=== PATIENT | male | born 1945 | race Caucasian/White ===

== ENCOUNTER 2018-10-29 06:39 | Inpatient (IN) ==
[2018-10-29] MEDS ORDERED: *HR* FentaNYL (PF) 100 MCG/2 ML VIAL ONE ×2 (06:59→09:13)
[2018-10-29] MEDS ORDERED: *HR* Midazolam HCl 2 MG/2 ML VIAL ONE (07:00)
[2018-10-29] MEDS ORDERED: *HR* Propofol 200 MG/20 ML VIAL IVP ONE (07:00)
[2018-10-29] MEDS ORDERED: Lidocaine -MPF 2% 2 ML VIAL ONE ×2 (07:01→07:02)
[2018-10-29] MEDS ORDERED: Ondansetron 4 MG/2 ML VIAL ONE ×2 (07:01→11:25)
[2018-10-29] MEDS ORDERED: Lidocaine HCL 4 ML Topical Solution (Laryng-O-Jet Kit Sterile Pak) TP ONE (07:01)
[2018-10-29] MEDS ORDERED: *HR* Rocuronium Bromide 50 MG/5 ML VIAL ONE ×3 (07:01→10:26)
[2018-10-29] MEDS ORDERED: CeFAZolin Syr 2,000MG/20 ML 2,000 MG/20 ML SYRINGE IVPB ONE (07:03)
[2018-10-29] MEDS: Ringers Solution, Lactated 1,000 ML IVC SCH (07:47)
--- NOTE | 2018-10-29 07:47 | Anesthesia Evaluation PreOp ---
Date of Encounter: 10/29/18 Time of Encounter: 07:45 - Past History Planned Operation: left partial nephrectomy robo Cardiac History: HTN, Other (small AAA) Pulmonary History: Denies Any Significant HX CAD MANAGER History: Denies Any Significant HX Other Medical History: Renal (polycystic renal ds, CKD 3) Anesthesia History: No Prior Anesthetic Complications, Past Anesthesia (appy, bilat TKA, finger amp, left RCR) Alcohol Use: none Drug use: none Medications and Allergies Ascorbic Acid [Vitamin C] 500 mg PO DAILY 10/29/18 [History] Aspirin [Lo-Dose Aspirin EC] 81 mg PO DAILY 10/29/18 [History] Ferrous Sulfate [Iron] 325 mg PO DAILY 10/29/18 [History] Lisinopril [Zestril] 10 mg PO BID 10/29/18 [History] Sertraline [Zoloft] 150 mg PO HS 10/29/18 [History] Testosterone Cypionate [Depo-Testosterone] 200 mg IM Q2W 10/29/18 [History] diazePAM [Valium] 1 tab PO BID 10/29/18 [History] Allergy/AdvReac Type Severity Reaction Status Date / Time celecoxib [From Celebrex] AdvReac See Verified 10/29/18 07:28 Comments - Meds/Allergy Pre-op Review Medications Reviewed: Yes Allergies Reviewed: Yes Beta Blockers on Current Med List: No Anesthesia Results - Labs Selected Entries 10/29/18 07:24 Temperature 97.9 F Pulse Rate 53 Respiratory Rate 18 Blood Pressure 136/85 O2 Sat by Pulse Oximetry 94 Laboratory Tests 10/22/18 10/26/18 09:49 07:21 Hgb 17.8 H Hct 53.6 H Sodium 141 Potassium 4.7 BUN 41 H Creatinine 1.65 H - Imaging EKG: report reviewed (SINUS RHYTHM MODERATE VOLTAGE CRITERIA FOR LVH, CONSIDER NORMAL VARIANT INFERIOR MYOCARDIAL INFARCTION, PROBABLY OLD) Additional studies: CTA: IMPRESSION: 1. Extensive diffuse atherosclerotic plaque is present in the infrarenal aorta. At the site of abnormality seen on recent MRI, ulcerated atherosclerotic plaque is present. However, there is no evidence of a penetrating aortic ulcer or dissection. 2. 10 mm average dimension noncalcified nodule in the left upper lobe. Follow-up per guidelines below. 3. Suspicious 3.6 cm lesion in the left inferior renal pole, better evaluated on recent MRI. 4. High-grade stenosis in the proximal right renal artery. Anesthesia Exam Selected Entries 10/29/18 07:24 Temperature 97.9 F Pulse Rate 53 Respiratory Rate 18 Blood Pressure 136/85 O2 Sat by Pulse Oximetry 94 Weight: 92 NPO (# of Hours): 8 - HEENT Pupil (Motor): EOMI Mallampati: III Teeth: Normal - CAD MANAGER LOC: Oriented CAD MANAGER Motor: Normal RUE, Normal LUE, Normal RLE, Normal LLE, Normal Face CAD MANAGER Sensory: Normal: RUE, LUE, RLE, LLE, Face - Cardiac Rhythm: Regular Murmur: None - Pulmonary Respiratory Effort: Symmetrical Anesthesia Assess/Plan ASA Score: 3 Level of consciousness: Cooperative, Oriented Anesthetic Plan: General Monitoring Plan: Standard Monitors, A-Line Recovery Plan: PACU (agrees to GA, a-line and blood if needed)
[2018-10-29] MEDS ORDERED: *HR* OxyCODONE Immed Rel 5 MG TABLET PO PRN (07:51)
[2018-10-29] MEDS ORDERED: *HR* HYDROmorphone (PF) 1 MG/ML SYRINGE IVP PRN (07:51)
[2018-10-29] MEDS ORDERED: *HR* Promethazine 25 MG/ML VIAL IVP PRN (07:51)
[2018-10-29] MEDS ORDERED: Acetaminophen IV 1,000 MG/100 ML INFUS..BTL ONE (07:53)
[2018-10-29] MEDS ORDERED: Ringers Solution, Lactated 1,000 ML IVC SCH (08:00)
--- NOTE | 2018-10-29 08:07 | History & Physical Report ---
Date of Encounter: 10/29/18 Time of Encounter: 08:07 24 Hour HP Update - Instructions Instructions: If the History and Physical is less than 30 days old and was completed prior to A.M. admission and or procedure and has NOT been updated on calendar day of procedure please complete this update prior to performing procedure. - Update Patient reports changes in Medical Condition: No Changes in examination, assessment, or condition: No Changes in Medication: No Preop tests/diagnostics Reviewed: Yes Surgery Remains Indicated: Yes Consent for Planned Operative Procedure(s) Verified: Yes - Pre-Operative Checklist Preoperative Checklist Indicated: Yes Prophylactic Antibiotic Ordered: Yes Home Medications Include Beta Rafi: No Beta Rafi Taken Today (Day of Surgery): No Beta Rafi Taken Yesterday (Day Prior to Surgery): No Is VTE Prophylaxis Indicated?: Yes
[2018-10-29] MEDS ORDERED: EPHEDrine 50 MG/ML VIAL ONE ×2 (08:39→09:55)
[2018-10-29] MEDS ORDERED: Dexamethasone 4 MG/ML VIAL ONE (09:05)
[2018-10-29] MEDS ORDERED: *HR* Metoprolol 5 MG/5 ML VIAL IVP ONE (09:25)
[2018-10-29] MEDS ORDERED: *HR* Labetalol 20 MG/4 ML SYRINGE IVP ONE (09:26)
--- NOTE | 2018-10-29 09:38 | Anesthesia Procedures ---
Date of Encounter: 10/29/18 Time of Encounter: 08:20 Procedures: Anesthesia - Arterial Line Consent obtained: written consent Time out performed: Yes Amount of Anesthetic used (mls): 0 Size (Gauge): 20 Length (inches): 1 3/4 Technique Used: sterile prep, direct puncture technique (Ultrasound guided insertion on first attempt) Post-Procedure: line taped into place Patient tolerated procedure: well, no complications Complications: none Site: Radial L Vitals: See Anesthesia Record Comments: Left radial arterial line placement performed utilizing the ultrasound on first attempt without complications.
[2018-10-29] MEDS ORDERED: *HR* PHENYLEPHRINE 1,000 MCG/10 ML SYRINGE IVP ONE (09:51)
[2018-10-29] MEDS ORDERED: Heparin 1,000 UNITS/500 mL 500 ML ONE (09:52)
[2018-10-29] MEDS ORDERED: Mannitol 20% 100 GM/500 ML IV.SOLN IVC ONE (09:59)
--- NOTE | 2018-10-29 11:40 | Operative Note ---
Date of procedure: 10/29/18 Pre-op diagnosis: Left renal mass Post-op diagnosis: same Procedure: Minimally invasive left partial nephrectomy with robotic assistance, intraoperative ultrasound with interpretation in real time by surgeon to facilitate procedure Implants: 19-Zambian Martell drain in inferior most left lower abdominal incision Complications: None Anesthesia: GETA Surgeon: Charles Ellis Was there an medical office assistant instructor present: Yes Tumbler Plater: Kenya Mack (No qualified resident was available to scrub the case. EDMOND Sams was involved in all aspects case from incision through closing.) Estimated blood loss (cc): 100 Specimen: Left partial nephrectomy/left renal mass Condition: stable Disposition: PACU Procedure in Detail: The patient brought to the operating theater and placed on table supine position. Is identified by name date of and administered a general anesthetic. Preoperative images were reviewed and the patient was placed in right lateral decubitus position with the left side up. The patient was prepped and draped in normal sterile fashion. Standard 5 port transperitoneal laparoscopic robotic assistance configuration was used. Pneumoperitoneum was established with a Veress needle. The camera port was placed blindly. All other ports were placed under direct vision. There were no injuries report placement. Using pure lapse Technique: Was mobilized medially the kidney was mobilized and the renal vasculature identified and skeletonized. The robot was then brought in and docked. The kidney was defatted. The tumor was identified in the lower pole posterior medial aspect of the kidney. This was a difficult location required dissection into the hilum. Intraoperative lapse Ultrasound was used to identify the margins of the tumor. This approximated the hilum but not abut the vessels. It did extend into the renal sinus fat. Based upon this intraoperative ultrasound the margins the tumor were marked on the surface of the kidney with Bovie coagulation. 2 renal artery clamps were placed after 12.5 g mannitol were given. One renal vein clamp was placed. The kidney was incised with accommodation of sharp and blunt dissection this was carried down through the renal parenchyma down to renal sinus fat. Grossly are margin appeared negative. The specimens trapped within an Endo Catch bag and sent to pathology for evaluation. Reconstruction of the kidney was performed in 2 layers. The first layer was a running 3-0 V- lock suture at the base of the defect. A second layer was a running 2-0 Vloc suture in a running horizontal mattress fashion interrupted Weck clips along the right side of the defect tensioning. Once the defect was closed the Weck clips on the inferior side of the defect were used to tension. The defect was closed over RRR. The renal vein clamp was released and hyperinflation of lungs showed no significant bruising. Renal artery clamps were released and no significant hemorrhage was identified. The defect was covered with FloSeal. The remainder without there is inspected and found have excellent hemostasis. A 19-Zambian Martell drain was placed in the lower most port site and secured to the skin with a silk ligature. The medical office assistant instructor 12 mm port located just inferior to the umbilicus was closed at the fascial level using an 0 Vicryl suture placed with a Petros-Purcell needle. All other ports were closed at the level skin with running 4-0 Vicryl suture. Mastisol and Steri-Strips were applied. Sterile bandages were applied and this ended the operative procedure.
[2018-10-29] MEDS ORDERED: Naloxone 0.4 MG/ML INJ IVP PRN (11:49)
[2018-10-29] MEDS ORDERED: Ondansetron 4 MG/2 ML VIAL IVP PRN (11:49)
--- NOTE | 2018-10-29 12:34 | Anesthesia Evaluation Post Op ---
Date of Encounter: 10/29/18 Time of Encounter: 12:33 - Vital Signs Vital Signs: Vital Signs Temperature 97.9 F 10/29/18 07:24 Pulse Rate 53 10/29/18 07:24 Respiratory Rate 18 10/29/18 07:24 Blood Pressure 136/85 10/29/18 07:24 O2 Sat by Pulse Oximetry 94 10/29/18 07:24 Temperature 96.8 F L 10/29/18 12:11 Pulse Rate 62 10/29/18 12:11 Respiratory Rate 15 10/29/18 12:11 Blood Pressure 134/78 10/29/18 12:11 O2 Sat by Pulse Oximetry 94 10/29/18 12:11 - Lungs Lungs: Clear Ascult./Percussion - Airway Airway: Non-obstructed - Cardiovascular Baseline Rhythm - Mental Status Mental Status: Alert & Oriented, Answers Appropriately - Pain Pain Scale: 2 Pain Scale used: Numeric (1 - 10) - Nausea Vomiting Nausea Vomiting: Not Present - Hydration Hydration: Ice chips - Discharge PostOp Status: Transfer Patient to floor
--- NOTE | 2018-10-29 14:34 | Event Note ---
Date of Encounter: 10/29/18 Time of Encounter: 13:45 POD #0. Patient seen and examined sitting upright in bed in no apparent distress. Vital signs are stable. Patient reports pain is well-controlled, and he denies any chest pain or dyspnea. Patient is tolerating clear liquids without nausea or vomiting. His Lee catheter is indwelling and draining transparent, clear yellow urine into bedside bag. Patient doing well in the immediate postoperative period, and I will reevaluate him in the morning.
[2018-10-29] MEDS: Acetaminophen IV 1,000 MG/100 ML INFUS..BTL IVPB SCH ×2 (16:20→20:47)
[2018-10-29] MEDS: 0.9 % Sodium Chloride 1,000 ML IVC SCH ×2 (16:35→22:17)
[2018-10-29] MEDS: *HR* Heparin 5,000 UNIT/ML VIAL SQ SCH (20:38)
[2018-10-30] MEDS: Acetaminophen IV 1,000 MG/100 ML INFUS..BTL IVPB SCH ×3 (01:33→11:28)
[2018-10-30 04:19] LABS: Basophils % 0.1 %; Eosinophils % 0.1 %; Hematocrit 43.4 % (37.5-50.1); Hemoglobin 14.5 g/dL (12.9-16.9); Immature Granulocytes % 0.3 % (0-4); Lymphocytes # 0.8 K/mcL (0.6-4.6); Lymphocytes % 8.8 %; Mean Corpuscular HGB Conc 33.4 g/dL (31.6-35.5); Mean Corpuscular Hemoglobin 30.2 pg (28.0-33.3); Mean Corpuscular Volume 90.4 fL (83.0-100.0); Mean Platelet Volume 9.7 fL (9.4-12.4); Monocytes # 1.3 K/mcL (0.0-1.3); Monocytes % 13.1 %; Neutrophils # 7.4 K/mcL (1.6-8.9); Platelet Count 179 K/mcL (140-400); Red Cell Distribution Width 13.2 % (11.5-14.5); Segmented Neutrophils % 77.6 %; White Blood Count 9.6 K/mcL (4.3-11.1)
[2018-10-30 04:38] LABS: Calcium 8.6 mg/dL (8.6-10.3); Potassium 4.7 mEq/L (3.5-5.1)
[2018-10-30] MEDS: *HR* Heparin 5,000 UNIT/ML VIAL SQ SCH (05:58)
[2018-10-30] MEDS: Ringers Solution, Lactated 1,000 ML IVC SCH (07:32)
[2018-10-30] MEDS ORDERED: Famotidine 20 MG TABLET PO PRN (10:29)
[2018-10-30] MEDS ORDERED: Chloraseptic Spray 177 ML BOTTLE MM PRN (10:30)
--- NOTE | 2018-10-30 11:14 | Discharge Summary ---
<Kenya Mack N - Last Filed: 10/30/18 11:57> Orders not resulted at time of discharge: Pending orders 10/29/18 11:12 Surgical Pathology [PTH] Stat Date of Encounter: 10/30/18 Time of Encounter: 11:45 - Discharge Diagnosis (1) Left renal mass Priority: Primary Status: Acute - Hospital Course Hospital course: Mr. Schmitt is a 73 year old male who presents with a history of a left renal mass. On 10/30/2018, patient was taken to the operating room where he underwent a robotic-assisted left partial nephrectomy. There were no surgical complications, and the patient tolerated the procedure well. Postoperative course was relatively unremarkable, and he was dismissed in satisfactory condition. 19-Czech Martell drain was removed on postoperative day #1 without complication. Postoperative expectations, restrictions, activity and follow-up were discussed with patient, and patient verbalized understanding. Time spent discussing smoking cessation with patient: 3 to 10 minutes - Time Spent with Patient Total time spent providing and/or coordinating discharge services: Less than 30 minutes Procedures and tests throughout hospitalization: Robotic assisted left partial nephrectomy Labs on day of discharge: Labs from last 24 hours 10/30/18 10/30/18 04:06 04:06 WBC 9.6 RBC 4.80 Hgb 14.5 Hct 43.4 MCV 90.4 MCH 30.2 MCHC 33.4 RDW 13.2 Plt Count 179 MPV 9.7 Immature Gran % 0.3 Seg Neutrophils % 77.6 Lymphocytes % 8.8 Monocytes % 13.1 Eosinophils % 0.1 Basophils % 0.1 Neutrophils # 7.4 Lymphocytes # 0.8 Monocytes # 1.3 Eosinophils # 0.0 Basophils # 0.0 Sodium 138 Potassium 4.7 Chloride 107 Carbon Dioxide 24 BUN 33 H Creatinine 1.83 H Est GFR ( Amer) 44 L Est GFR (Non-Af Amer) 36 L BUN/Creatinine Ratio 18 Glucose 137 H Calculated Osmolality 295 Calcium 8.6 - Discharge Medications Prescriptions: New Ciprofloxacin HCl [Cipro] 500 mg PO BID #6 tablet Docusate [Colace] 100 mg PO BID #30 capsule Oxycodone HCl/Acetaminophen [Percocet 5-325 mg Tablet] 1 each PO Q6H PRN 4 Days #15 tablet PRN Reason: Pain Continued Testosterone Cypionate [Depo-Testosterone] 200 mg IM Q2W Sertraline [Zoloft] 100 mg PO HS Lisinopril [Zestril] 10 mg PO BID Ferrous Sulfate [Iron] 325 mg PO DAILY Aspirin [Lo-Dose Aspirin EC] 81 mg PO DAILY diazePAM [Valium] 1 tab PO BID Ascorbic Acid [Vitamin C] 500 mg PO DAILY Home Medications: Ascorbic Acid [Vitamin C] 500 mg PO DAILY 10/29/18 [History] Aspirin [Lo-Dose Aspirin EC] 81 mg PO DAILY 10/29/18 [History] Ferrous Sulfate [Iron] 325 mg PO DAILY 10/29/18 [History] Lisinopril [Zestril] 10 mg PO BID 10/29/18 [History] Sertraline [Zoloft] 100 mg PO HS 10/29/18 [History] Testosterone Cypionate [Depo-Testosterone] 200 mg IM Q2W 10/29/18 [History] diazePAM [Valium] 1 tab PO BID 10/29/18 [History] Ciprofloxacin HCl [Cipro] 500 mg PO BID #6 tablet 10/30/18 [Rx] Docusate [Colace] 100 mg PO BID #30 capsule 10/30/18 [Rx] Oxycodone HCl/Acetaminophen [Percocet 5-325 mg Tablet] 1 each PO Q6H PRN 4 Days #15 tablet 10/30/18 [Rx] Allergies/Adverse Reactions: Allergy/AdvReac Type Severity Reaction Status Date / Time celecoxib [From Celebrex] AdvReac See Verified 10/29/18 07:28 Comments Date of admission: 10/29/18 13:15 Primary care physician: Mariza Ivory CNP Discharging clinician: Kenya Mack Anticipated date of discharge: 10/30/18 Exam Initial Vital Signs Temp Pulse Resp BP Pulse Ox 97.9 F 53 18 136/85 94 10/29/18 07:24 10/29/18 07:24 10/29/18 07:24 10/29/18 07:24 10/29/18 07:24 - General physical appearance Present: no distress, no pain - Eyes Present: PERRL, normal ocular movement - ENT Present: normal nares, normal mucosa - Neck Present: no masses, trachea midline, no lymphadenopathy - Respiratory Present: normal respiratory effort - Cardiovascular Cardiovascular exam IM: RRR - Abdomen Abdomen: Present: soft, non tender, wound (Primary incisions clean, dry, intact). Absent: distended - Genitourinary other (300cc transparent clear yellow urine in bedside urinal) - Integumentary Present: no rash, no abnormal pigmentation - Neurologic Present: normal coordination - Musculoskeletal Present: other (Normal posture) - Patient Status Disposition: Home, Self-Care Condition: Good Functional capacity at discharge: independent ambulation Overall status at discharge: patient is progressing back to baseline - Discharge Instructions Follow Up With: Mariza Ivory CNP [Primary Care Provider] - Charles Ellis [Partnered Physician] - 11/06/18 7:30 am Additional Instructions: Call if fever greater than 101 degrees. Call if incision sites are red, warm, or begin to drain excessively. Okay to shower. No tub baths, swimming, or hot tubs. No lifting greater than 20 pounds or heavy activity. Okay to drive as long as you are no longer taking narcotic pain medicine. - Diet and Activity Activity: increase activity as tolerated Diet: advance to your usual diet <Charles Ellis - Last Filed: 10/30/18 17:09> Orders not resulted at time of discharge: Pending orders 10/29/18 11:12 Surgical Pathology [PTH] Stat Date of Encounter: 10/30/18 - Hospital Course Hospital course: Mr. Schmitt is a 73 year old male - Time Spent with Patient Total time spent providing and/or coordinating discharge services: Labs on day of discharge: Labs from last 24 hours 10/30/18 10/30/18 04:06 04:06 WBC 9.6 RBC 4.80 Hgb 14.5 Hct 43.4 MCV 90.4 MCH 30.2 MCHC 33.4 RDW 13.2 Plt Count 179 MPV 9.7 Immature Gran % 0.3 Seg Neutrophils % 77.6 Lymphocytes % 8.8 Monocytes % 13.1 Eosinophils % 0.1 Basophils % 0.1 Neutrophils # 7.4 Lymphocytes # 0.8 Monocytes # 1.3 Eosinophils # 0.0 Basophils # 0.0 Sodium 138 Potassium 4.7 Chloride 107 Carbon Dioxide 24 BUN 33 H Creatinine 1.83 H Est GFR ( Amer) 44 L Est GFR (Non-Af Amer) 36 L BUN/Creatinine Ratio 18 Glucose 137 H Calculated Osmolality 295 Calcium 8.6 Date of admission: 10/29/18 13:15 Primary care physician: Mariza Ivory CNP Exam Initial Vital Signs Temp Pulse Resp BP Pulse Ox 97.9 F 53 18 136/85 94 10/29/18 07:24 10/29/18 07:24 10/29/18 07:24 10/29/18 07:24 10/29/18 07:24 - Attending Attestation Patient seen and examined independently. I am in agreement with the assessment and plan as outlined by our Urologic Surgery Department Physician Historic Interpreter, Frederick. Answered all patient and family questions regarding home-going and postop expectations.
[2018-10-30] MEDS ORDERED: diazePAM 5 MG TABLET PO SCH (11:15)
[2018-10-30 11:16] VITALS: BP 133/77
== END 2018-10-30 14:29 | disposition home or self-care (01) | DRG 658 ==
LOC: SAMDAY 06:39 → 3ANU 13:15
PROVIDERS: ADMIT Urology; ATTEND Urology

== ENCOUNTER 2020-08-18 10:02 | Inpatient (IN) ==
[2020-08-18] MEDS ORDERED: *HR* Succinylcholine 200 MG/10 ML VIAL IVP ONE (10:06)
[2020-08-18] MEDS ORDERED: Lidocaine -MPF 2% 5 ML VIAL ONE (10:06)
[2020-08-18] MEDS ORDERED: *HR* FentaNYL (PF) 100 MCG/2 ML VIAL ONE ×2 (10:06→14:36)
[2020-08-18] MEDS ORDERED: *HR* Propofol 200 MG/20 ML VIAL IVP ONE (10:06)
[2020-08-18] MEDS ORDERED: Ondansetron 4 MG/2 ML VIAL ONE (10:06)
[2020-08-18] MEDS: Ringers Solution, Lactated 1,000 ML IVC SCH ×2 (10:34→16:44)
[2020-08-18] MEDS ORDERED: EPHEDrine 50 MG/ML VIAL ONE (11:08)
[2020-08-18] MEDS ORDERED: *HR* EPINEPHrine 1 MG/10 ML SYRINGE INTRATRACH PRN (11:16)
[2020-08-18] MEDS ORDERED: *HR* FentaNYL (PF) 100 MCG/2 ML VIAL IVP ONE (14:43)
[2020-08-18] MEDS ORDERED: Ondansetron 4 MG/2 ML VIAL IVP PRN (14:52)
[2020-08-18] MEDS ORDERED: MOM Conc 10 ML UD.LIQ PO PRN (14:52)
[2020-08-18] MEDS ORDERED: Naloxone 0.4 MG/ML INJ IVP PRN (14:52)
[2020-08-18] MEDS ORDERED: Acetaminophen 325 MG TABLET PO PRN (14:52)
[2020-08-18] MEDS: *HR* HYDROmorphone (PF) 1 MG/ML SYRINGE IVP PRN ×2 (16:00→20:29)
[2020-08-18 17:19] LABS: Appearance of Body Fluid Slightly Hazy (Clear); Volume of Body Fluid 15 mL
[2020-08-19] MEDS ORDERED: Melatonin 3 MG TABLET PO ONE ×2 (02:44→03:00)
[2020-08-19] MEDS ORDERED: Metoclopramide 10 MG/2 ML VIAL IVP ONE ×2 (07:51→13:22)
[2020-08-19] MEDS: Mag Hydrox/Al Hydrox/Simeth 30 ML UDC PO PRN (08:17)
[2020-08-19] MEDS ORDERED: *HR* FentaNYL (PF) 100 MCG/2 ML VIAL ONE (12:44)
[2020-08-19] MEDS ORDERED: diazePAM 5 MG TABLET PO PRN (15:42)
[2020-08-19 18:14] LABS: Adenovirus Not Detected (Not Detect); Bordetella Pertussis Not Detected (Not Detect); Chlamydophila pneumoniae Not Detected (Not Detect); Coronavirus 229E Not Detected (Not Detect); Coronavirus HKU1 Not Detected (Not Detect); Coronavirus NL63 Not Detected (Not Detect); Coronavirus OC43 Not Detected (Not Detect); Human Metapneumovirus Not Detected (Not Detect); Human Rhinovirus/Enterovirus Not Detected (Not Detect); Influenza A Subtype 2009 H1 Not Detected (Not Detect); Influenza B Not Detected (Not Detect); Mycoplasma pneumoniae Not Detected (Not Detect); Parainfluenza Virus 1 Not Detected (Not Detect); Parainfluenza Virus 2 Not Detected (Not Detect); Parainfluenza Virus 3 Not Detected (Not Detect); Parainfluenza Virus 4 Not Detected (Not Detect); Respiratory Syncytial Virus Not Detected (Not Detect); SARS-CoV-2 Not Detected (Not Detect)
[2020-08-19] MEDS ORDERED: Morphine Sulfate 2 MG/ML SYRINGE IVP ONE (19:02)
[2020-08-19] MEDS: GuaiFENesin/Codeine Oral Soln 5 ML UDC PO PRN (22:52)
[2020-08-20] MEDS: GuaiFENesin/Codeine Oral Soln 5 ML UDC PO PRN (05:13)
[2020-08-20] MEDS ORDERED: *HR* Heparin 5,000 UNIT/ML VIAL SQ SCH (06:00)
[2020-08-20 06:13] LABS: Basophils % 0.2 %; Eosinophils # 0.1 K/mcL (0.0-0.6); Eosinophils % 1.4 %; Hemoglobin 15.9 g/dL (12.9-16.9); Immature Granulocytes % 0.4 % (0-4); Lymphocytes % 9.3 %; Mean Corpuscular HGB Conc 31.2 g/dL (31.6-35.5); Mean Corpuscular Hemoglobin 29.1 pg (28.0-33.3); Mean Corpuscular Volume 93.4 fL (83.0-100.0); Mean Platelet Volume 10.1 fL (9.4-12.4); Monocytes # 1.2 K/mcL (0.0-1.3); Monocytes % 11.3 %; Platelet Count 166 K/mcL (140-400); Red Blood Count 5.46 M/mcL (4.19-5.50); Segmented Neutrophils % 77.4 %; White Blood Count 10.3 K/mcL (4.3-11.1)
[2020-08-20 07:58] LABS: Calcium 8.8 mg/dL (8.6-10.3); Potassium 5.4 mEq/L (3.5-5.1)
[2020-08-20] MEDS: Mag Hydrox/Al Hydrox/Simeth 30 ML UDC PO PRN ×2 (09:00→18:19)
[2020-08-20] MEDS ORDERED: levoFLOXacin 500 MG/100 ML 500 MG/100 ML BAG IVPB SCH (10:45)
[2020-08-20 16:20] VITALS: BP 125/84; PULSE 53; TEMP 97.9; O2SAT 97
== END 2020-08-20 19:52 | disposition short-term general hospital (02) | DRG 167 ==
LOC: SAMDAY 10:02 → 2NENU 10:02 → SUATTDRO 18:00 → UNDODISOB 20:34
PROVIDERS: ADMIT Internal Medicine; ATTEND Family Medicine
PROC: ENDOBBX (2020-08-18 11:10)